=== PATIENT | female | born 1985 | race Caucasian/White ===

== ENCOUNTER 2019-10-06 19:30 | Emergency (ER) | payer OTHER ==
[2019-10-06 19:44] VITALS: BP 105/71; PULSE 74; TEMP 98.1; BMI 25.0
[2019-10-06 20:44] LABS: BASO % 0.3 % (0-2.0); EOS % 0.2 % (0-4.5); HEMATOCRIT 38.5 % (32.4-45.2); HEMOGLOBIN 12.9 GM/dl (10.7-15.3); LYMPH % 24.8 % (8-40); MCH 29.3 pg (25.7-33.7); MCHC 33.5 g/dl (32.0-36.0); MEAN CELL VOLUME 87.4 fl (80-96); MEAN PLT VOLUME 10.6 fl (7.5-11.1); MONO % 5.3 % (3.8-10.2); NEUT % 69.4 % (42.8-82.8); PLATELET COUNT 177 K/MM3 (134-434); RDW 12.1 % (11.6-15.6); WHITE BLOOD COUNT 9.2 K/mm3 (4.0-10.8)
[2019-10-06 20:50] LABS: ALBUMIN 3.5 g/dl (3.4-5.0); BILIRUBIN,TOTAL 0.4 mg/dl (0.2-1); CREATININE 0.4 mg/dl (0.55-1.3); POTASSIUM 3.5 mmol/L (3.5-5.1); TOT PROT 6.6 g/dl (6.4-8.2)
--- NOTE | 2019-10-06 21:53 | PDOC ---
Documentation entered by April Sabillon SCRIBE, acting as scribe for Keiry Lynch MD. Keiry Lynch MD: This documentation has been prepared by the Ridge ramey Xhesika, SCRIBE, under my direction and personally reviewed by me in its entirety. I confirm that the documentation accurately reflects all work, treatment, procedures, and medical decision making performed by me. History of Present Illness - General Chief Complaint: Pain, Acute Stated Complaint: I THINK IM PREG I WANT AN U/S, ABD CRAMPS Time Seen by Provider: 10/06/19 19:33 History Source: Patient, Family Exam Limitations: No Limitations - History of Present Illness Initial Comments: 10/06/19 20:41 HPI The patient is a 34 y/o female, , with no significant PMH of who presents to the ED with lower abdominal cramping and lower back pain for the past day. The patient states her LMP was 2 months ago, she took a test at home which was positive. Pt reports a mild subjective fever, nausea, sweats, and intermittent headaches. Pt reports for the past 3 months where her hands and feet get cold. Family at bedside states the patient came [place] the [place] ago, and has not seen an OBGYN yet. Pt denies vaginal bleeding/ discharge. [place] ago. Denies syncope, chest pain, SOB, palpitation, dizziness, weakness, V, D, bladder and bowel problems, focal weakness/paresthesias, leg swelling/pain, rash. no VB or discharge. No suspicious food intake. Allergies: None Past Medical History/PSH:None reported Social history: Lives with family. No tobacco, ETOH or drug use. Meds: as documented in EMR Family history: noncontributory ROS GENERAL/CONSTITUTIONAL: No fever or chills. No weakness. + sweats. HEAD, EYES, EARS, NOSE AND THROAT: +headache, dizziness. no sore throat or ear pain. CARDIOVASCULAR: No chest pain or palpitations, syncope or edema. RESPIRATORY: No SOB, cough GASTROINTESTINAL +nausea. No vomiting. No diarrhea or constipation. No bloody stools. GENITOURINARY: No hematuria, dysuria, frequency, urgency or other changes. MUSCULOSKELETAL: No joint or muscle swelling or pain. No decreased range of motion. No neck pain. + lower back pain. +abdominal cramping. SKIN: No rash or changes in skin color or lesions. No wounds. NEUROLOGIC: alert and oriented appropriately +headache. No dizziness, loss of consciousness, or change in strength/ sensation. No gait instability. HEMATOLOGIC/LYMPHATIC: No anemia, easy bruising/bleeding, or history of blood clots. No swollen lymph nodes ALLERGIC/IMMUNOLOGIC: No allergies PSYCH: no anxiety/depression All other systems reviewed and negative, or as documented in HPI. PHYSICAL EXAM General: Well appearing, awake and alert, NAD. HEENT: NCAT, PERRL, EOMI, clear conjunctiva, anicteric, moist mucous membranes , clear oropharynx, no oral lesions.. Neck: neck supple, FROM Resp: CTAB, normal and even respirations, no respiratory distress CVS: RRR, no murmurs, 2+ peripheral pulses throughout, no peripheral edema Abdomen: soft, NTND, no rebound or guarding. No CVAT. Back: nontender, normal inspection and ROM] MSK: no edema, MINA x4, ROM intact. No clubbing or cyanosis. normal bulk and tone. Extremities: no calf tenderness Neuro: alert, oriented appropriately; no focal neurologic deficits Skin: warm and well perfused, cap refill <2 sec, normal color 10/06/19 22:27 Past History - Past Medical History Allergies/Adverse Reactions: Allergies Allergy/AdvReac Type Severity Reaction Status Date / Time No Known Allergies Allergy Verified 10/06/19 19:31 Home Medications: Ambulatory Orders NK [No Known Home Medication] 10/06/19 COPD: No Other medical history: DENIES - Psycho Social/Smoking Cessation Hx Smoking History: Never smoked Hx Alcohol Use: No Drug/Substance Use Hx: No *Physical Exam - Vital Signs Last Vital Signs Temp Pulse Resp BP Pulse Ox 98.1 F 74 16 105/71 100 10/06/19 19:31 10/06/19 19:31 10/06/19 19:31 10/06/19 19:31 10/06/19 19:31 ED Treatment Course - LABORATORY CBC & Chemistry Diagram: 10/06/19 20:30 10/06/19 20:30 - ADDITIONAL ORDERS Additional order review: Laboratory Results 10/06/19 10/06/19 19:48 19:48 Urine Color Yellow Urine Appearance Clear Urine pH 5.5 Urine Protein Negative Urine Glucose (UA) Negative Urine Ketones Negative Urine Blood Negative Urine Nitrite Negative Urine Bilirubin Negative Urine Urobilinogen 0.2 Ur Leukocyte Esterase Negative Urine HCG, Qual Positive - RADIOLOGY Radiology Studies Ordered: Category Date Time Status <14WKS US [US] Stat Ultrasound 10/06/19 20:18 Taken Medical Decision Making - Medical Decision Making 10/06/19 21:48 Vital Signs Temp Pulse Resp BP Pulse Ox 98.1 F 74 16 105/71 100 10/06/19 19:31 10/06/19 19:31 10/06/19 19:31 10/06/19 19:31 10/06/19 19:31 VS reviewed wnl, HD appropriate. UA is negative for any infection, CBC is within normal limits. cmp wnl, cr preserved. + No bleeding, no vaginal bleeding no indication to check type and screen.. Beta- hCG appropriately elevated. abdomens soft and nontender here, no lower quad tenderness, no RLQ or RUQ tenderness pt has been otherwise comfortable and appears hydrated, lorraine PO intake. Ultrasound reveals single IUP at approximately 9 weeks. normal ovaries c/w vitamins establishment of care with OBGYN recommended. 10/06/19 22:28 Pt to be discharged in stable condition. Patient and family () made aware of clinical impression, treatment recommendations and disposition plan, return precautions discussed (including but not limited to new or persistent/ worsening symptoms, pain, fevers, or signs of infection, chest pain, respiratory distress, inability to tolerate oral intake, dehydration, syncope, or neurologic changes). Follow up with [facility] (referrals given) as recommended, follow up information provided, take medications as instructed for duration of time. continue with supportive care, avoid triggers and precipitants. All questions answered to patient's satisfaction and expressed understanding and comfort with this. At the time of discharge, the patient is alert, clinically improved, tolerating po and verbalizes understanding of instructions, satisfied with the care received and felt comfortable with the plan. Patient does not suffer from an acute life-threatening medical condition at this time and is safe for outpatient follow-up. 10/06/19 22:30 Discharge - Discharge Information Problems reviewed: Yes Clinical Impression/Diagnosis: Qualifiers: Weeks of gestation: unspecified Qualified Code(s): Z34.90 - Encounter for supervision of normal , unspecified, unspecified trimester Abdominal pain Qualifiers: Abdominal location: unspecified location Qualified Code(s): R10.9 - Unspecified abdominal pain Condition: Stable Disposition: HOME - Admission No - Follow up/Referral Referrals: [facility] [Provider Group] Anila Devlin MD [Staff Physician] - Dolores Arceo MD [Staff Physician] - Tere Holbrook MD [Staff Physician] - - Patient Discharge Instructions Patient Printed Discharge Instructions: Nausea of (Alternative Therapy), DI for Abdominal Pain -- Early Additional Instructions: 1) Please follow-up with your primary care doctor in the next 1-2 days. Please call tomorrow for for any urgent issues. you should follow up with medical equipment repair technician/aquatics group fitness instructor for further follow up of your . 2) You were given a copy of the tests performed today. Please bring the results with you and review them with your primary care doctor. Your laboratory / imaging results were normal, with live single intrauterine at approx 9 weeks. 3) If you have any worsening of symptoms or any other concerns please return to the ED immediately. Return if worsening symptoms including fevers, headache, vomiting, visual or hearing disturbances, abdominal pain, chest pain, shortness of breath, syncope, dehydration, inability to take things by mouth/vomiting, altered mental status, or worsening concerning symptoms. 4) Please continue taking your home medications as directed. you should take daily vitamins over the counter Stay well hydrated and rest adequately. Make an appointment. If you cannot follow-up with your primary care doctor please return to the ED --- - Post Discharge Activity
== END 2019-10-06 22:41 | disposition home or self-care (01) ==
LOC: FER 19:30
DX: Z34.90 Encounter for supervision of normal pregnancy, unspecified, unspecified trimester (principal); R10.9 Unspecified abdominal pain
CPT/HCPCS: 36415; 76801-TC; 80053; 81003; 84702; 84703; 85025; 87086; 99284-25

== ENCOUNTER 2020-05-15 13:00 | Inpatient (IN) | payer OTHER ==
--- OUTSIDE RECORDS SUMMARY | 2020-05-15 13:20 | XMS ---
:1985 Author Organization [facility] Care Team Providers Name Role Phone MD Chapo Garsia Unavailable Unavailable MD John Tijerina Unavailable Unavailable MD Sudheer Tan Unavailable Unavailable Mica Shankar Unavailable Unavailable Jillian Hinojosa MD Unavailable Unavailable Juan Francisco Hinojosa MD Unavailable Unavailable Juan Francisco Hinojosa MD Unavailable Unavailable Juan Francisco Hinojosa MD Unavailable Unavailable Juan Francisco Hinojosa MD Unavailable Unavailable Juan Francisco Hinojosa MD Unavailable Unavailable Enio Unavailable Unavailable Other Unavailable Unavailable Re-disclosure Warning The records that you are about to access may contain information from federally- assisted alcohol or drug abuse programs. If such information is present, then the following federally mandated warning applies: This information has been disclosed to you from records protected by federal confidentiality rules (42 CFR part 2). The federal rules prohibit you from making any further disclosure of this information unless further disclosure is expressly permitted by the written consent of the person to whom it pertains or as otherwise permitted by 42 CFR part 2. A general authorization for the release of medical or other information is NOT sufficient for this purpose. The Federal rules restrict any use of the information to criminally investigate or prosecute any alcohol or drug abuse patient.The records that you are about to access may contain highly sensitive health information, the redisclosure of which is protected by Article 27-F of the [facility] Public Health law. If you continue you may haveaccess to information: Regarding HIV / AIDS; Provided by facilities licensed or operated by the [facility] Office of Mental Health; or Provided by the [facility] Office for People With Developmental Disabilities. If such information is present, then the following [facility] mandated warning applies: This information has been disclosed to you from confidential records which are protected by state law. State law prohibits you from making any further disclosure of this information without the specific written consent of the person to whom it pertains, or as otherwise permitted by law. Any unauthorized further disclosure in violation of state law may result in a fine or fci sentence or both. A general authorization for the release of medical or other information is NOT sufficient authorization for further disclosure. Encounters Encounter Providers Location Date Indications Data Source(s ) Outpatient Attender: Mica ICU-MATTRI 05/10/2020 S Darin Shankar 02:44:00 PM Hospital EDT Outpatient Attender: Mica ICU-RADCLAsim 05/03/2020 [facility] Angelito Torretender: 02:55:23 PM Hospital Doctor Other EDT Outpatient Attender: Jennifer ICU-OBGYAsim 04/27/2020 [facility] Darin SteenAttender: 09:57:52 AM Hospi erlinda Doctor Other EDT - 05/03/2020 11:59:00 PM EDT Patient discharged. Outpatient Attender: Jillian ICU-JENNIFER 04/19/2020 04:08:05 RAGINI Hinojosa MD PM EDT - 04/20/2020 [facility] 11:59:00 PM EDT Patient discharged. Outpatient Attender: MD Cowan ICUDarinOBYUVAL 04/16/2020 03:41:43 RAGINI Jean: Doctor PM EDT [facility] Other Admission cancelled. Disregard status an d admitted date. Outpatient Attender: Jillian ICUCHULA 04/13/2020 01:49:05 RAGINI Hinojosa MD PM EDT - 04/15/2020 [facility] 11:59:00 PM EDT Patient discharged. Outpatient Attender: Jillian ICUCHULA 04/05/2020 03:42:32 RAGINI Hinojosa MD PM EDT - 04/06/2020 [facility] 11:59:00 PM EDT Patient discharged. Outpatient Attender: MD Lopez ICU-LABCLAsim 04/02/2020 03:12:40 RAGINI Salter: Doctor PM EDT - 04/16/2020 [facility] Other 11:59:00 PM EDT Patient discharged. Outpatient Attender: MD Willard ICU-RADIO 03/25/2020 S - Angelito ValenzuelaelliReferrer: MD Willard 03:10:00 PM EDT - [facility] 03/25/2020 [facility] 11:59:00 PM EDT Patient discharged. Outpatient Attender: MD Willard ICU-RADCLN 03/25/2020 S - Angelito TanReferrer: 03:10:00 PM EDT - [facility] 03/25/2020 [facility] 11:59:00 PM EDT Patient discharged. Outpatient Attender: MD Lopez ICU-LABCLN 03/25/2020 02:35:18 [facility] Darin Salter: Doctor PM EDT - 04/02/2020 [facility] Other 11:59:00 PM EDT Patient discharged. Outpatient Attender: MD Willard ICU-OBGYN 03/25/2020 01:06:00 S [facility] PM EDT Hospital Admission cancelled. Disregard status an d admitted date. Outpatient Attender: MD Willard ICU-LABCLN 03/11/2020 S - Angelito TanAttender: Doctor 03:09:14 PM EDT - [facility] 03/25/2020 [facility] 11:59:00 PM EDT Patient discharged. Outpatient Attender: Jillian ICU-ANTE PAR 03/08/2020 03:54:44 RAGINI Hinojosa MD PM EDT - 03/09/2020 [facility] 11:59:00 PM EDT Patient discharged. Outpatient Attender: Jillian ICU-OBGYN 02/26/2020 03:27:00 MHSalvador Hinojosa MDAttender: PM EDT - 03/11/2020 Hospital Doctor Other 11:59:00 PM EDT Patient discharged. Outpatient Attender: Jillian ICU-OBGYN 02/25/2020 02:34:11 RAGINI Hinojosa MDAttender: PM EDT - 02/26/2020 Hospital Doctor Other 11:59:00 PM EDT Patient discharged. Outpatient Attender: Jillian ICU-DIABETIC CTR 02/24/2020 02:15:00 RAGINI Hinojosa MD PM EDT - 02/24/2020 [facility] 11:59:00 PM EDT Patient discharged. Outpatient Attender: Jillian ICU-DIABETIC CTR 02/17/2020 01:52:00 RAGINI Hinojosa MD PM EDT - 02/17/2020 [facility] 11:59:00 PM EDT Patient discharged. Outpatient Attender: ICUDarinOBGYN 02/12/2020 09:40:49 AM [facility] - Angelito Luong Other EDT Hospital Admission cancelled. Disregard status an d admitted date. Outpatient Attender: Jillian ICU-RADCLN 02/10/2020 11:39:37 [facility] Darin Hinojosa MDAttender: AM EDT - 02/12/2020 Hospital Doctor Other 11:59:00 PM EDT Patient discharged. Outpatient Attender: Jillian ICU-LAB 02/09/2020 10:38:00 AM RAGINI Hinojosa MD EDT - 02/09/2020 [facility] 11:59:00 PM EDT Patient discharged. Outpatient Attender: MD Willard ICU-OBGYN 01/29/2020 [facility] Darin TanAttender: Doctor 02:12:36 PM EDT [facility] Hospital Admission cancelled. Disregard status an d admitted date. Outpatient Attender: Jillian ICU-LABCLN 01/01/2020 12:09:54 [facility] Darin Hinojosa MDAttender: PM EDT - 01/29/2020 Hospital Doctor Other 11:59:00 PM EDT Patient discharged. Outpatient Attender: Jillian ICU-LABCLN 12/29/2019 01:16:56 RAGINI Hinojosa MDAttender: PM EDT - 01/01/2020 Hospital Doctor Other 11:59:00 PM EDT Patient discharged. Outpatient Attender: Jennifer ICU-RADCLN 12/25/2019 [facility] Darin Duncanender: Doctor 01:11:38 PM EDT - Cherise Other 12/29/2019 [facility] 11:59:00 PM EDT Patient discharged. Immunizations Vaccine Date Status Description Data Source(s) Tdap 03/25/2020 completed Tdap On: 25-Mar-2020 [facility] jenningsiordeniz 12:00:00 AM EDT Lot #: [id number], Spinzo Medications Medication Brand Start Product Dose Route Administrative Pharmacy [facility] Indications Reaction Description Data Name Date Form Instructions Instructions Source(s) Docusate Colace [id number] complet Colace [facility] Sodium 100 100 mg 2019 {cap( ed Health MG Oral oral 02:13: s)} System Capsule capsul 53 PM [Colace] e EDT Colace 100 mg oral capsule Medication should be taken with plenty o f water. 1 0 [id number] active 1 oral capsule Ordered: 01-Jan-2020 [facility] oral capsule Quantity: 0 [facility] [employer] [facility] Refills: 0 Insurance Providers Payer name Policy type Policy ID Covered Covered alliance party's Policy P ammy / Coverage alliance party ID relationship to Pantoja Inf ormation type pantoja WALLACE [id number] HEALTH NON CAP [facility]idel[facility] Care Medicaid [id number] 1 [id number] Medicaid Medicaid [id number] 1 [id number] MEDICAID [id number] SP [id number] [facility] Medicaid [id number] 1 [id number] Plan 3&4 Problems, Conditions, and Diagnoses Code Display Name Description Problem Type Effective Data Sour ce(s) Dates O24.410 Diet controlled Diet controlled 99085-2 03/25/2020 [facility] gestational gestational 12:00:00 AM Health Syst em diabetes mellitus diabetes mellitus EDT (GDM) in third (GDM) in third trimester trimester R76.12 Positive Positive 54752-2 03/25/2020 [facility] QuantiFERON-TB 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 Healt h System Gold test Gold test EDT O24.419 Gestational Gestational Diagnosis 05/10/2020 [facility] - New diabetes mellitus diabetes mellitus 01:30:00 PM Cherise in , (GDM) EDT Hospital unspecified control Z34.93 Encounter for Encounter for Diagnosis 05/10/2020 [facility] - Ne w supervision of supervision of 01:30:00 PM Aide lle normal , normal EDT H ospital unspecified, third in third trimester trimester Z34.83 Encounter for Encounter for Diagnosis 05/03/2020 [facility] - Ne w supervision of supervision of 02:12:00 PM Aide lle other normal normal EDT Hospit al , third in multigravida in trimester third trimester O36.93X0 Maternal care for and Diagnosis 04/20/2020 [facility] - N ew problem, placental problem 08:59:00 AM Ro purnima unspecified, third affecting EDT Hospit al trimester, not management of applicable or mother in third unspecified trimester Z3A.36 36 weeks gestation 36 weeks gestation Diagnosis 0 [facility] - New of of 02:16:00 PM [facility] O09.33 Supervision of Encounter in third Diagnosis 04/15/2020 MH S - New with trimester for 11:18:00 AM Whitney dubon insufficient supervision of [facility] care, with third trimester history of insufficient care Z91.19 Patient's Non-compliant Diagnosis 04/15/2020 [facility] - New noncompliance with patient 11:18:00 AM Aide lle other medical [facility] treatment and regimen O99.213 Obesity Maternal morbid Diagnosis 04/15/2020 [facility] - New complicating obesity in third 11:18:00 AM Aide lle , third trimester, [facility] trimester antepartum O24.410 Gestational Diet controlled Diagnosis 04/15/2020 [facility] - Ne w diabetes mellitus gestational 11:18:00 AM Aide lle in , diet diabetes mellitus [facility] controlled (GDM) Z3A.32 32 weeks gestation 32 weeks gestation Diagnosis 0 [facility] - New of of 12:00:00 AM [facility] Z23 Encounter for Encounter for Diagnosis 03/25/2020 S - Ne w immunization administration of 01:06:32 PM Roch mike vaccine [facility] R76.12 Nonspecific Positive Diagnosis 03/25/2020 [facility] - New reaction to cell 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 Terence helle mediated immunity Gold test [facility] l measurement of gamma interferon antigen response without active tuberculosis Z33.1 state, Encounter for Diagnosis 03/11/2020 [facility] - New incidental incidental 02:16:00 PM Kihei [facility] Z34.92 Encounter for Encounter for Diagnosis 02/24/2020 [facility] - Ne w supervision of supervision of 12:00:00 AM Aide lle normal , normal , [facility] unspecified, unspecified, second trimester second trimester Z3A.27 27 weeks gestation 27 weeks gestation Diagnosis 0 [facility] - New of of 12:00:00 AM [facility] Z3A.21 21 weeks gestation 21 weeks gestation Diagnosis 05/22/202 0 [facility] - New of of 12:00:00 AM [facility] N91.1 Secondary Secondary Diagnosis 12/29/2019 S - New amenorrhea amenorrhea 11:40:00 AM [facility] Surgeries/Procedures Procedure Description Date Indications Data Source(s) XR Chest Single PA view 03/25/2020 Health system XR Chest Single PA view 03:16:00 PM EDT S ystem - 03/25/2020 03:16:00 PM EDT US Obstetric Biophysical 02/12/2020 [facility] Profile US Obstetric 10:42:00 AM EDT Syst em Biophysical Profile - 02/12/2020 10:42:00 AM EDT Venipuncture 02/09/2020 [facility] th 10:40:26 AM EDT System - 02/09/2020 12:00:23 PM EDT Chlamydia 01/01/2020 [facility] Trachomatis/Neisseria 04:39:30 PM EDT Sys tem Gonorrhea RNA,TMA - 01/01/2020 04:51:59 PM EDT Cystic Fibrosis Screen 01/01/2020 [facility] 12:41:57 PM EDT System - 01/01/2020 01:24:04 PM EDT SMA Carrier Screen 01/01/2020 [facility] 12:41:57 PM EDT System - 01/01/2020 01:20:29 PM EDT Maternal Serum Screen 4 01/01/2020 Health system 12:41:57 PM EDT System - 01/01/2020 01:25:26 PM EDT Quantiferon-TB Gold 01/01/2020 [facility] 12:41:57 PM EDT System - 01/01/2020 01:25:26 PM EDT US Obstetric Complete US 12/31/2019 [facility] Obstetric Complete 02:06:00 PM EDT System - 12/31/2019 02:06:00 PM EDT Results ID Date Data Source [id number] 05/12/2020 08:11:00 AM EDT [facility] Biophysical profileCLINICAL INFORMATION: Female, 34 years old. Evaluate for fetalwell being. LMP 08/02/2019 of lulú ds an estimated gestationalage of 40 weeks 4 days.TECHNIQUE: Transabdominalultrasono graphy of the gestation wasperformed.FINDINGS: Correlation is m stanislaw with a prior study [id number]/12/2020.Biophysical profile sco re is as follows: movement 2/2Fetal breathing2/2Fetal tone 2/2Amniotic fluid volume 2/2Total biophysical profile score is 8/8.A singlelive intrauterine gestation was noted. The lie iscephalic. The placenta is anterior. Its appearanceisp hysiologic. Amniotic fluid volume is within physiologiclimits, with an MADHU of approx imately 8.1 cm. Fetalmotion andfetal cardiac motion are identified.Evaluation of feta l anatomy is limited on thisexamination.The following measurements were perfor med. AnatomyBiparietaldiameter = 9.4 cm for estimated age 38 weeks, 3days.Head c ircumference = 34.3 cm for estimated age 39 weeks,4 days.Abdominal circumference = 3 8.0 cm for estimated age 42 weeks, 0days.Femur length = 7.5 cm forestimated age 38 weeks, 3 days.Estimated gestational age by ultrasound is 39 week s and 4days +/- 22days.Estimated date of delivery by ultrasound is 05/15/2020.Est imated weight is 4118 g +/- 609g or 9 pounds and 1ounce +/- 21 ounces.Estimate d weight percentile is 87 %. cardiacactivity is identified with a rat e of 130 beatsper minute.IMPRESSION:Biophysical profileis 8 out of 8.Single live intrauterine gestation. Cephalic lie. Anteriorplace nta. Amniotic fluid indexis 8.1 cm.Estimated gestational age by ultrasound is 3 9 weeks and 4days +/- 22days.Estimated date of delivery by ultrasound is 05/15/2020. Estimated weight is 4118 g +/- 609g or 9 pounds and 1ounce +/- 21 ounces.Estima marilynn weight percentile is 87 %. cardiacactivity is identified with a rat e of 130 beatsper minute.Appropriate interval fetalgrowth.Electronically Signed:Vikash William, at 23:54 EDTTel , Servicesupport [phone], [phone] Name Value Range Interpretation Code Description Data Tamra rce(s) Supporting Document(s ) ID Date Data Source [id number] 05/09/2020 01:52:28 AM EDT [facility] Name Value Range Interpretation Description Data Source(s ) Supporting Code Document(s ) Reagin Ab Non-react Normal (applies to RPR. [facility] [Presence] ulysses non-numeric Health System in Serum by results) RPR ID Date Data Source [id number] 05/09/2020 01:52:28 AM EDT [facility] Name Value Range Interpretation Description Data Sup porting Code Source(s) Document(s ) Deprecated Micro Normal (applies Aerobic [facility] Bacteria Result to non-numeric Culture, Urine Health identified in Final results) System Urine by Culture Aerobe Reading culture Note::< 10,000 CFU/ML ID Date Data Source [id number] 05/09/2020 01:52:28 AM EDT [facility] Name Value Range Interpretation Description Data Sup porting Code Source(s) Document(s ) Erythrocytes 3.71 Below low normal RBC Count [facility] [#/volume] in {10^6_uL Health Blood by } System Automated count Leukocytes 6.6 Normal (applies WBC Count [facility] [#/volume] in {10^3_uL to non-numeric Health Unspecified } results) System specimen by Automated count Hematocrit 33.7 % Below low normal Hematocrit [facility] [Volume Health Fraction] of System Blood Erythrocyte mean 90.8 fl Normal (applies MCV [facility] corpuscular to non-numeric Health volume [Entitic results) System volume] by Automated count Hemoglobin 11.3 Below low normal Hemoglobin [facility] [Mass/volume] in {gm/dL} Health Blood System Erythrocyte mean 30.5 pg Normal (applies MCH [facility] corpuscular to non-numeric Health hemoglobin results) System [Entitic mass] by Automated count Platelets 147 Normal (applies Platelet Count [facility] [#/volume] in {10^3_uL to non-numeric Health Plasma by } results) System Automated count Erythrocyte 13.8 % Normal (applies RDW-CV [facility] distribution to non-numeric Health width [Entitic results) System volume] by Automated count Erythrocyte mean 33.5 Normal (applies MCHC [facility] corpuscular {gm/dL} to non-numeric Health hemoglobin results) System concentration [Mass/volume] by Automated count Nucleated 0.0 Normal (applies NRBC % [facility] erythrocytes {/100_WB to non-numeric Health [#/volume] in C} results) System Body fluid Platelet mean 11.4 fl Normal (applies MPV [facility] volume [Entitic to non-numeric Health volume] in Blood results) System by Automated count Neutrophils 4.7 Normal (applies Neutrophil # [facility] [#/volume] in {10^3_uL to non-numeric Health Body fluid } results) System Lymphocyte 1.5 Normal (applies Lymphocyte # [facility] percent {10^3_uL to non-numeric Health differential } results) System count (procedure) Lymphocytes 22.5 % Normal (applies Lymphocyte % [facility] [#/volume] in to non-numeric Health Blood by results) System Automated count NRBC# 0.00 Normal (applies NRBC # [facility] {10^3_uL to non-numeric Health } results) System Neutrophils/100 71.2 % Normal (applies Neutrophil % Arthur mario leukocytes in to non-numeric Health Blood by results) System Automated count Basophils/100 0.2 % Normal (applies Basophil % [facility] leukocytes in to non-numeric Health Unspecified results) System specimen by Manual count Eosinophils/100 0.2 % Normal (applies Eosinophil % Arthur mario leukocytes in to non-numeric Health Unspecified results) System specimen Eosinophils 0.01 Normal (applies Eosinophil # [facility] [#/volume] in {10^3_uL to non-numeric Health Blood } results) System Monocytes/100 5.0 % Normal (applies Monocyte % [facility] leukocytes in to non-numeric Health Blood results) System Monocytes 0.3 Normal (applies Monocyte # [facility] [#/volume] in {10^3_uL to non-numeric Health Blood by Manual } results) System count ImmatureGranuloc 0.06 Normal (applies Immature [facility] ytes# {10^3_uL to non-numeric Granulocytes # Health } results) System ImmatureGranuloc 0.9 % Above high Immature [facility] ytes% normal Granulocytes % Health System Basophils 0.01 Normal (applies Basophil # [facility] [#/volume] in {10^3_uL to non-numeric Health Blood by } results) System Automated count ID Date Data Source [id number] 05/09/2020 01:52:28 AM EDT [facility] Name Value Range Interpretation Description Data Sup porting Code Source(s) Document(s ) Color Yellow Normal (applies Color [facility] to non-numeric Health results) System Specific 1.016 Normal (applies Urine Specific [facility] gravity of to non-numeric [facility] Urine results) System Appearance of HAZY Normal (applies Urine [facility] Urine to non-numeric Appearance Health results) System pH.. 7.0 Normal (applies pH.. [facility] {pH_units to non-numeric Health } results) System Glucose,UA NEG Normal (applies Glucose, UA [facility] to non-numeric Health results) System Protein NEG Normal (applies Protein [facility] [Mass/volume] to non-numeric Health in Serum or results) System Plasma Urobilinogen < 2.0 Normal (applies Urobilinogen [facility] [Mass/volume] to non-numeric UA Health in Urine results) System Reference Range: Negative or <=2.0 BilirubinUrine NEG Normal (applies Bilirubin Urine [facility] to non-numeric Health System results) Ketones NEG Normal (applies Ketones UA [facility] [Mass/volume] in to non-numeric Health S yste Urine results) Leukocyte esterase Trace Abnormal (applies Leukocyte Est erase [facility] [Units/volume] in to non-numeric Concentration [facility] System Urine results) Leukocytes 1 {/HPF} Normal (applies White Blood Cells Arthur mario [#/volume] in to non-numeric Health Syst em Unspecified specimen results) by Automated count Nitrate+Nitrite Negative Normal (applies Nitrite [facility] [Mass/volume] in to non-numeric Health S yste Unspecified specimen results) UrineBlood LG(3+) Abnormal (applies Urine Blood [facility] to non-numeric Health System results) verified with microscope Epithelial cells 11 {/HPF} Normal (applies to Epithelial Evita ls [facility] [Presence] in non-numeric Health System Unspecified specimen results) by Wet preparation Bacteria [Presence] FEW Normal (applies to Bacteria M [facility] in Unspecified non-numeric Health System specimen results) Mucus RARE Normal (applies to Mucus [facility] non-numeric Health System results) RedBloodCells 1 {/HPF} Normal (applies to Red Blood Cells M [facility] non-numeric Health System results) ID Date Data Source [id number] 05/09/2020 01:52:28 AM EDT [facility] Name Value Range Interpretation Description Data Sup porting Code Source(s) Document(s ) aPTT in Blood 26.8 Normal (applies Activated [facility] by Coagulation {Seconds to non-numeric Partial Health assay } results) Thromboplastin System Time ID Date Data Source [id number] 05/09/2020 01:52:28 AM EDT [facility] Name Value Range Interpretation Description Data Sup porting Code Source(s) Document(s ) Prothrombintim 10.70 Normal (applies Prothrombin [facility](PT) {seconds to non-numeric time (PT) Health System } results) INR in Blood 0.92 Normal (applies INR Result [facility] by Coagulation {Ratio} to non-numeric Health Sys tem assay results) Normal = 0.7-1.1Therapeutic = 2.0-3.0Mec hanical Heart = 3.0-4.5 ID Date Data Source [id number] 05/09/2020 01:52:28 AM EDT [facility] Name Value Range Interpretation Description Data Sup porting Code Source(s) Document(s ) Glucose 77 mg/dL Normal (applies to Glucose, Serum [facility] [Mass/volum non-numeric Health System e] in Serum results) or Plasma ID Date Data Source [id number] 05/09/2020 01:52:28 AM EDT [facility] Name Value Range Interpretation Description Data Sup porting Code Source(s) Document(s ) Quanti PositiveIn healthy Abnormal Quantiferon-T [facility] feron- persons who have a (applies to B Gold. Health TBGold low likelihood both non-numeric System . of M.tuberculosis results) infection and of progression to activetuberculosis if infected, a single positive QFT resultshould not be taken as reliable evidence of M. tuberculosisinfectio n. Repeat testing, with either the initial testor a different test, may be considered on a bgom-xq-elajvyrae. TB2-NI 0.95 {IU/mL} Normal (applies TB2-NIL [facility] L to non-numeric Health results) System The Nil tube value reflects the backgrou nd interferongamma immune response of the patient's blood sample.This value has be en subtracted from the patient'sdisplayed TB and Mitogen results.Lower than expected results with the Mitogen tube prevent false-negative Quantiferon readings byde tecting a patient with a potential immunesuppressive condition and/or subop timal pre-analyticalspecimen handling.The TB1 Antigen tube is coated with theM. tuberc ulosis-specific antigens designed to elicitresponses from TB antigen primed C D4+ helperT-lymphocytes.The TB2 Antigen tube is coated with theM. tuberculosis-specif ic antigens designed to elicitresponses from TB antigen primed CD4+ helper and CD8+cy totoxic T-lymphocytes.For additional information, please refer tohttp://educa tion.[employer]/faq/204(This link is being provided for informational/educ ational purposes only.)Test Performed at:[facility] [id number], [place], [place] [address]Martin Trevino M.D. TB1-NIL 0.68 {IU/mL} Normal (applies to TB1-NIL [facility] non-numeric results) System NIL 0.41 {IU/mL} Normal (applies to NIL [facility] non-numeric results) System Mitogen-NIL 6.92 {IU/mL} Normal (applies to Mitogen-NIL [facility] non-numeric results) System ID Date Data Source [id number] 05/09/2020 01:52:28 AM EDT [facility] Name Value Range Interpretation Description Data Sup porting Code Source(s) Document(s ) D Ab [Titer] in Positive Normal (applies Rh [facility] Serum or Plasma to non-numeric Health results) System Type A Normal (applies Type [facility] to non-numeric Health results) System AntibodyScreen Negative Normal (applies Antibody [facility] to non-numeric Screen Health results) System ID Date Data Source [id number] 05/09/2020 01:52:28 AM EDT [facility] Name Value Range Interpretation Description Data Sup porting Code Source(s) Document(s ) VaricellaResultValue 492.10 Normal (applies Varicella [facility] {index} to non-numeric Result Value Health results) System Index Interpretation<135.0 0 Negative - Antibody not ckoboizz559.00-164.99 Equivocal>or =165.00 Positive - Antibody detectedA positive result indicates that the patient has antibodyto VZV but does not differentiate between an active orpast i nfection. The clinical diagnosis must be interpretedin conjunction with the clini gelacio signs and symptoms ofthe patient. This assay reliably measures immunity dueto p revious infection but may not be sensitive enough todetect antibodies induced by va ccination. Thus, anegative result in a vaccinated individual does notnecessaril y indicate susceptibility to VZV infection.A more sensitive test for vaccination-wojciech linsey immunityis Varicella Zoster Virus Antibody Immunity Screen, ACIF.Test Perf ormed at:[facility], [place], [place] [address]NxyldpreMartin olmos M.D. ID Date Data Source [id number] 05/09/2020 01:52:28 AM EDT [facility] Shubham hanley System Name Value Range Interpretation Code Description Data Tamra rce(s) Supporting Document(s ) Rubella 3.17 Normal (applies to Rubella [facility] {index} non-numeric Health System results) Index Interpretation<0.90 Not consistent with immunity0.90-0.99 Equivocal>or=1.00 Consistent with immu nityThe presence of rubella IgG antibody suggestsimmunization or past or current infection with rubellavirus.Test Performed at:[facility] [place] [address]MdrzhhcuMartin Trevino M.D. ID Date Data Source [id number] 05/09/2020 01:52:28 AM EDT [facility] Shubham hanley System Name Value Range Interpretation Description Data Sup porting Code Source(s) Document(s ) Human NONREACTIVE Normal (applies HIV test, [facility] immunodeficien Normal Range: to non-numeric Routine Health cy virus Non results) (antigen and System antibody titer ReactiveNegativ antibody measurement e for HIV-1 testing) (procedure) antigen and HIV-1/HIV-2 antibodies. No laboratory evidence of HIV infection.Test was performed at [address] ID Date Data Source [id number] 05/09/2020 01:52:28 AM EDT [facility] Name Value Range Interpretation Description Data Sup porting Code Source(s) Document(s ) Ethinicity N/P Normal (applies Ethinicity [facility] to non-numeric Health results) System CFCarrierScre see Normal (applies CF Carrier [facility] en noteNEGATIVE, to non-numeric Screen Health NONE OF THE results) System MUTATIONS LISTEDBELOW WERE DETECTED Interpretatio see noteThis Normal (applies Interpretation [facility] n result does to non-numeric Health not rule out results) System the presence of amutation or a diagnosis of cystic fibrosis disease(CF). The risk for mutations that cause CF otherthan the ones tested depends greatly on familyhistory , clinical presentation, and ethnicity.Ghazal nce of Having a CF MutationEthni c Group Detection Before After NegativeRate Test ResultAshkena zi Anabaptist 94% 1 in 24 1 in 400Non-Hispan ic 88% 1 in 25 1 in 208CaucasianH ispanic-Ameri can 72% 1 in 46 1 in 164African-Am erican 65% 1 in 65 1 in 186Asian-Amer ican 49% 1 in 94 1 in 184Other insufficient data available Method. see noteThe Normal (applies Method. [facility] mutations are to non-numeric Health detected by results) System multiplex-meche ymerasechain reaction (PCR) amplification of specific CFgene regions, followed by nucleotide sequence analysison a massively parallel sequencing platform. Althoughrare, false positive or false negative results mayoccur. All results should be interpreted in the contextof clinical findings, relevant history, and otherlaborato ry data. Mutations/Meche SEE TEXT see Normal (applies Mutations/Polym [facility] ymorphisms [id number] to non-numeric orphisms Health (c.254G>A) results) System R334W (c.1000C>T)39 4delTT (c.262delTT) R347H (c.1040G>A)R1 17H (c.350G>A) R347P (c.1040G>C)62 1+1 G>T (c.489+1G>T) A455E (c.1364C>A)71 1+1 G>T (c.579+1G>T) 1507del (c.1519delATC )1078delT (c.948delT) V703qjp (c.1521delCTT )V520F (c.1558G>T) R553X (c.1657C>T)17 17-1 G>A (c.1585-1G>A) R560T (c.1679G>C)G5 42X (c.1624G>T) 1898+1 G>A (c.1766+1G>A) S549N (c.1646G>A) 2183AA>G (c.2051delAAi nsG)S549R (c.1645A>C or c.1647T>G) 2184delA (c.2052delA)G 551D (c.1652G>A) 2789+5 G>A (c.2657+5G>A) 3120+1 G>A (c.2988+1G>A) W6180P (c.3846G>A)R1 162X (c.3484C>T) B3222F (c.3909C>G)36 59delC (c.3528delC)3 849+10kb C>T (C.6053+66891 C>T)3876delA (c.3744delA)3 905insT (c.3773insT)T his assay detects thirty-two mutations, including thetwenty-thr ee core mutations recommended by the AmericanColle ge of Medical Genetics (ACMG) and the AmericanCongr ess of Obstetricians and Gynecologists (ACOG) forpopulation -based CF carrier screening. In additionto the ACMG/ACOG panel, this assay detects nineadditiona l mutations. While these mutations are rarein the [place] population, the scientific and medicallitera ture indicates that these mutations are notbenign polymorphisms . The status of the intron 9(formerly intron 8) polyT tract is reported onlywhen the R117H mutation is detected. Reviewer SEE TEXT see Normal (applies Reviewer Valeriy Gutierrez to non-numeric Health n results) System Orestes, Ph.D.,FACDi idalia, Molecular GeneticsHealt h care providers, please contact your local [facility] genetic counselor or call [employer]( [phone]) for assistance with interpretatio n ofthese results.The analytical performance characteristi cs of thisassay have been determined by [facility]. The modifications have not been cleared or approved by the FDA. Thisassay has been validated pursuant to the [place] ns and is used for clinical purposes.For additional information, please refer tohttp://educ ation.Call Loop /faq/cfscreen (This link is being provided for informational /educational purposes only.)This test was performed at:[facility] [address] [address]Dtwf Performed at:[facility], [address] [place] [address]Vsjycexadan Steele M.D., Ph.D. ID Date Data Source [id number] 05/09/2020 01:52:28 AM EDT [facility] Name Value Range Interpretation Description Data Sup porting Code Source(s) Document(s ) Interpretation-MAT SEE Normal (applies Interpretati [facility] 4 NOTEScreen to non-numeric on- MAT4 Health negative results) System for open NTD, Down syndrome and Trisomy 18. ONTDRisk 1:2200 Normal (applies ONTD Risk [facility] to non-numeric Health results) System DownRisk 1:543 Normal (applies Down Risk [facility] to non-numeric Health results) System DownRiskAge 1:430 Normal (applies Down Risk [facility] to non-numeric Age Health results) System Sezlxhd25Qcgd < 1:5000 Normal (applies Trisomy 18 [facility] to non-numeric Risk Health results) System AFPMoM,1Fetus 1.18 Normal (applies AFP MoM, 1 [facility] to non-numeric Fetus Health results) System AlphaFetoproteinMo DNR Normal (applies Alpha Arthur mario M to non-numeric Fetoprotein Health results) MoM System Mjvyx-6-Yzapjfxptn 76.70 ng/mL Normal (applies Alpha [facility] n [Moles/volume] to non-numeric Fetoprotein, Healt h in Serum or Plasma results) Serum System AFPMoM,2Fetus/Diab DNR Normal (applies AFP MoM, 2 [facility] etic to non-numeric Fetus/Diabet Health results) ic System AFPMoM,2Fetuses DNR Normal (applies AFP MoM, 2 [facility] to non-numeric Fetuses Health results) System AFPMoM,1Fetus/Diab DNR Normal (applies AFP MoM, 1 [facility] etic to non-numeric Fetus/Diabet Health results) ic System AFPMoM,3Fetuses DNR Normal (applies AFP MoM, 3 [facility] to non-numeric Fetuses Health results) System AFPMoM,3Fetus/Diab DNR Normal (applies AFP MoM, 3 [facility] etic to non-numeric Fetus/Diabet Health results) ic System hCG... 40.58 Normal (applies hCG... [facility] {IU/mL} to non-numeric Health results) System uE3MoM 0.94 Normal (applies uE3 MoM [facility] to non-numeric Health results) System GestationalAge 20.9 Normal (applies Gestational [facility] {Weeks} to non-numeric Age Health results) System hCGMom 2.15 Normal (applies hCG Mom [facility] to non-numeric Health results) System InhibinAMom 1.97 Normal (applies Inhibin A [facility] to non-numeric Mom Health results) System Performance of maternal serum AFP, hCG, estriol, and dimeric Inhibin A provides a useful screening test for detection of o pen neural tube defects and some chromosomal abnormalities. It should be noted that n ormal results never guarantee the of a normal baby and that 2 to 3 percent of n ewborns have some type of physical or mental defect, many of which are undetectable t hrough any known diagnostic technique. Comment-MAT4 SEE NOTEPerformance of Normal Comment- MAT4 [facility] maternal serum AFP, hCG, (applies to [facility] System estriol, and dimeric non-numeric Inhibin A provides a useful results) screening test for detection of open neural tube defects and some chromosomal abnormalities. It should be noted that normal results can never guarantee the of a normal baby and that 2 to 3 percent of newborns havesome type of physical or mental defect, many of which are undetectable through any known diagnostic technique. Race Other Normal Race [facility] (applies to Health System non-numeric results) Weight. 153 {lbs} Normal Weight. [facility] (applies to Health System non-numeric results) DatingMeth Last Menstrual Period Normal Dating Meth Arthur mario (applies to Health System non-numeric results) InhibinA 364 pg/mL Normal Inhibin A [facility] (applies to Health System non-numeric results) Piper 05/14/2020 Normal Piper [facility] (applies to Health System non-numeric results) Diabetic No Normal Diabetic [facility] (applies to Health System non-numeric results) RepeatForNtd No Normal Repeat For Ntd [facility] (applies to Health System non-numeric results) NtdFamHis No Normal Ntd Fam His [facility] (applies to Health System non-numeric results) Fetuses 1 Normal Fetuses [facility] (applies to Health System non-numeric results) uE3 2.13 ng/mL Normal uE3 [facility] (applies to Health System non-numeric results) Mat. 1986 This is a Normal Mat. [facility] screening test, not a (applies to Health System diagnostic test. Noreagent non-numeric system establishing the results) risk of chromosomeabnormalities during has been approved by theFDA. This risk assessment report is based in part ondemographic data provided by the ordering physician.It has been observed that patients who smoke cigarettesduring may have a slightly increased risk ofhaving a false positive SIMONA screen for Down syndrome ortrisomy 18. Please notify the laboratory promptly if anydata are incorrect. For assistance with recalculations,please call your local [facility] laboratory. Forassistance with interpretation of these results, pleasecontact your local [facility] genetic counseloror call [phone]).Th is is a screening test, not a diagnostic. No reagent system establishing the risk of chromosome abnormalities during has been approved by the FDA. This risk assessment report is based in part on demographic data provided by the ordering physician. Please notify the laboratory promptly if any data is incorrect. For assistance with recalcualtions, please call . For assistance with interpretation of these results, please contact our genetic counselor at [phone] or call [phone]. Requisition DNR Normal Requisition [facility] (applies to Health System non-numeric results) ID Date Data Source [id number] 05/09/2020 01:52:28 AM EDT [facility] Name Value Range Interpretation Description Data Sup porting Code Source(s) Document(s ) HepatitisBSurf Non Normal (applies Hepatitis B [facility] aceAntigen. ReactiveReferen to non-numeric [facility] ce Range: Non results) Antigen. System Reactive HepatitisBSurf DNRTest Normal (applies Hepatitis B [facility] aceAntigenNeut Performed to non-numeric [facility] at:[facility] results) Antigen Neut [facility], [place], [place] [address]RxvixklvCasey Trevino M.D. ID Date Data Source [id number] 05/09/2020 01:52:28 AM EDT [facility] Name Value Range Interpretation Code Description Data Tamra rce(s) Supporting Document(s ) Lead.. < 1 Normal (applies to Lead.. [facility] non-numeric results) Health Sy stem Analysis was performed by Inductively Co upled Plasma MassSpectrometry (ICPMS).Test Performed at:[facility], [place], [place] [address]CgvyrbosCasey Trevino M.D. ID Date Data Source [id number] 05/09/2020 01:52:28 AM EDT [facility] Name Value Range Interpretation Description Data Sup porting Code Source(s) Document(s ) SMN1 2 copies Normal (applies SMN1 [facility] to non-numeric Health results) System TechnicalResul see Normal (applies Technical [facility] ts noteNEGATIVE; to non-numeric Results Health AT LEAST TWO results) System COPIES OF THE SMN1 GENE DETECTED SMN2 1 copy Normal (applies SMN2 [facility] to non-numeric Health results) System Interpretation SEE TEXT see Normal (applies Interpretati [facility] . noteThis to non-numeric on. Health analysis results) System identified at least two (2) copies of theSMN1 gene. This result does not rule out carrierstatus or a diagnosis of spinal muscular atrophy (SMA)*This testing cannot differentiate between individualswho have all copies of the SMN1 gene on one chromosomeand NONE on the opposite chromosome as well as othermutations in the SMN1 gene. The risk for mutationsthat cause SMA other than the deletions tested dependsgreatly on family history and clinical presentation.__ ! ! !Risk to be a carrier-------- --!---------!-- !---- ------!-------- --Ethnicity !Detection! Prior !2SMN1 copy!3SMN1 copy! rate !carrier risk! result ! result--------- -!---------!--- ---------!----- -----!--------- - ! 95% ! 1 in 35 ! 1 in 632 ! 1 in 3500 ! ---------!----- -------!------- ---! A shkenazi ! 90% ! 1 in 41 ! 1 in 350 ! 1 in 4000Jewish ! ! ! ! !--- ------!-------- ----! ! Keisha n ! 93% ! 1 in 53 ! 1 in 628 ! 1 in 5000 ! ---------!----- -------!------- ---! A frican ! 71% ! 1 in 66 ! 1 in 121 ! 1 in 3000American ! ! ! ! !--- ------!-------- ----! ! Hisp anic ! 91% ! 1 in 117 ! 1 in 1061!1 in 130[address] !---------!---- --------!------ ----! Reviewer. SEE TEXT see Normal (applies Reviewer. Valeriy Qureshi to non-[facility] Health Premshine, results) System Ph.D.,[facility],Dir elvi, Molecular GeneticsSpinal muscular atrophy (SMA) is a family of disordersthat are characterized by progressive muscularweaknes s due to loss of anterior horn cells. Adeletion of exon 7 in the SMN1 gene causes 95% of SMA.New mutations account for approximately 2% of SMA.SMN2 genes are able to produce a protein identical tothat of the SMN1 gene, but at a reduced (10-20%)capacit y. As a result the number of copies of DHA8ixf been shown to influence the severity of thedisease. This assay detects the copy number of thetwo common genes (SMN1 and SMN2) recommended by theAmerican College of Medical Genetics (ACMG) forpopulation-b ased SMA carrier screening.Healt care providers, please contact your local[facility] genetic counselor or [employer] ([phone]) for assistance withinterpretat ion of these results.The copy number of the SMA genes (SMN1 and SMN2) isdetected by quantitative PCR. Although rare, falsepositive or false negative results may occur. Allresults should be interpreted in context of clinicalfinding s, relevant history, and other laboratory data.This test was developed and its analyticalperfo rmance characteristics have been determinedby [employer], [place], [place].It has not been cleared or approved by the FDA. Thisassay has been validated pursuant to the CLIAregulations and is used for clinical purposes.This test was performed at:[facility] [place], [place] [address]Iriveef Director: Abdirizak Steele M.D.Test Performed at:[facility] [place], [address] [place], [place] [address]Lmnvcyoadan Steele M.D., Ph.D. ID Date Data Source [id number] 05/09/2020 01:52:28 AM EDT [facility] Name Value Range Interpretation Code Description Data Tamra rce(s) Supporting Document(s ) RBC. 3.71 Below low normal RBC. [facility] {Million/u Health System L} Hematocri 33.4 % Below low normal Hematocrit. [facility] t. Health System hemoglobi 11.2 g/dL Below low normal hemoglobin. [facility] n. Health System MCV. 90.0 fl Normal (applies to MCV. [facility] non-numeric Health System results) MCH. 30.2 pg Normal (applies to MCH. [facility] non-numeric Health System results) RDW. 13.1 % Normal (applies to RDW. [facility] non-numeric Health System results) Test Performed at:[facility] [place] Radhika Trevino M.D. HemoglobinS 0.0 Normal Hemoglobin S [facility] {Percent} (applies to Health non-numeric System results) HemoglobinA 96.5 Normal Hemoglobin A [facility] {Percent} (applies to Health non-numeric System results) HemoglobinElectrophoresisInterpre SEE NOTENo Normal Hemog lobin [facility] tation Hemoglobin (applies to Electrophoresis Health variant non-numeric Interpretation System detected. results) HemoglobinC 0.0 Normal Hemoglobin C [facility] {Percent} (applies to Health non-numeric System results) Hem.Variant 0.0 Normal Hem. Variant [facility] {Percent} (applies to Health non-numeric System results) Test Performed at:[facility], [place], [place] Radhika Trevino M.D. Hemoglobin F < 1.0 Normal (applies to Hemoglobin, F [facility] Health [Mass/volume] in Blood non-numeric Syste m by Electrophoresis results) HemoglobinA2 2.5 Normal (applies to Hemoglobin A2 [facility] {Percent} non-numeric System results) ID Date Data Source [id number] 05/09/2020 01:52:28 AM EDT [facility] Name Value Range Interpretation Description Data Sup porting Code Source(s) Document(s ) C.Trac Not Normal (applies C. [facility] homati DetectedReference to non-numeric Trachomatis Healt h sAmp Range: Not Detected results) Amp System N.Gono Not Normal (applies N. Gonorrhea [facility] rrheab DetectedReference to non-numeric by [facility] yLCR Range: Not results) System DetectedThis test was performed using the APTIMA COMBO2(R) Assay(GEN-PROBE(R)) .For additional information, please refer tohttp://education. Physcient.co m/faq/ETB395(This link is being provided for informational/educa tionalpurposes only)Test Performed at:[facility], [place], [place] [address]Martin Trevino M.D. ID Date Data Source [id number] 05/09/2020 01:52:28 AM EDT [facility] System Name Value Range Interpretation Description Data Sup porting Code Source(s) Document(s ) ReportStatus FINAL Normal (applies Report Status [facility] to non-numeric Health results) System LMP.. 08/08/19 Normal (applies LMP.. [facility] to non-numeric Health results) System SOURCE.. CER Normal (applies SOURCE.. [facility] to non-numeric Health results) System PRE.PAP NA Normal (applies PRE.PAP [facility] to non-numeric Health results) System CLINICALINFO NA Normal (applies CLINICAL [facility] RMATION. to non-numeric INFORMATION. Health results) System GENERALCATEG DNR Normal (applies GENERAL [facility] ORIZATION to non-numeric CATEGORIZATION Health results) System STATEMENTOFA SEE Normal (applies STATEMENT OF [facility] DEQUACY NOTESatisfac to non-numeric ADEQUACY Health tory for results) System evaluation.E ndocervical/ transformati on zone componentpre sent.Age and/or menstrual status not provided PREV.BX NA Normal (applies PREV.BX [facility] to non-numeric Health results) System COMMENTCYTO DNR Normal (applies COMMENT CYTO [facility] to non-numeric Health results) System INTERPRETATI DNR Normal (applies INTERPRETATION/RE [facility] ON/RESULT2 to non-numeric SULT 2 Health results) System INTERPRETATI SEE Normal (applies INTERPRETATION/RE Mon [facility] ON/RESULT1 NOTENegative to non-numeric SULT 1 Health for results) System intraepithel ial lesion or malignancy. REVIEWCYTOTE DNR Normal (applies REVIEW [facility] CHNOLOGIST to non-numeric HUMAN RESOURCES MANAGER MANUFACTURING Health results) System CYTOTECHNOLO SEE NOTEJFG, Normal (applies HUMAN RESOURCES MANAGER MANUFACTURING M on[facility] GIST CT(ASCP)CT to non-numeric Health screening results) System location: [address] Note:The Pap is a screening test for cervical cancer. It is not adiagnostic test and is subject to false negative and false positiveresu lts. It is most reliable when a satisfactory sample, regularlyobt ained, is submitted with relevant clinical findings and history,and when the Pap result is evaluated along with historic and currentclini gelacio information. PATHOLOGIST. DNRTest Normal (applies PATHOLOGIST. [facility] Performed to non-numeric Health at:[facility] results) System [facility], [place], [place] [address]Everardo Trevino M.D. ID Date Data Source [id number] 05/09/2020 01:52:28 AM EDT [facility] 1 HOUR Name Value Range Interpretation Description Data Source(s ) Supporting Code Document(s ) 1HrGlucos 153 Normal (applies to 1 Hr Glucose [facility] e {gm/dL} non-numeric Health System results) Normal <130Borderline 130-140A bnormal >140 ID Date Data Source [id number] 05/09/2020 01:52:28 AM EDT [facility] Name Value Range Interpretation Description Data Sup porting Code Source(s) Document(s ) Blood glucose 80 mg/dL Normal (applies Glucose [facility] tolerance to non-numeric Tolerance, Health (procedure) results) Serum Fasting System Glucose 148 mg/dL Above high Glucose [facility] [Mass/volume] normal Tolerance, Health in Serum or Serum 30 System Plasma --30 Minutes minutes post XXX challenge Glucose 213 mg/dL Above high Glucose [facility] [Mass/volume] normal Tolerance, Health in Serum or Serum 1 Hour System Plasma --1 hour post XXX challenge GTTFastUrine Negative Normal (applies GTT Fast [facility] to non-numeric Urine Health results) System Glucose 222 mg/dL Above high Glucose [facility] [Mass/volume] normal Tolerance, Health in Serum or Serum 2 Hour System Plasma --2 hours post XXX challenge Glucose 122 mg/dL Above high Glucose [facility] [Mass/volume] normal Tolerance, Health in Serum or Serum 3 Hour System Plasma --3 hours post XXX challenge Glucose 2+ Normal (applies Glucose [facility] measurement, to non-numeric Tolerance, Health urine results) Urine 1 Hour System (procedure) Glucose Negative Normal (applies Glucose [facility] [Presence] in to non-numeric Tolerance, Health Urine by Test results) Urine 30 System strip --30 Minutes minutes post dose glucose RFW1NaWcwia 3+ Normal (applies GTT 3Hr Urine [facility] to non-numeric Health results) System Glucose 3+ Normal (applies Glucose [facility] [Mass/volume] to non-numeric Tolerance, Health in Urine --2 results) Urine 2 Hour System hours post dose glucose ID Date Data Source [id number] 05/09/2020 01:52:28 AM EDT [facility] Name Value Range Interpretation Description Data Sup porting Code Source(s) Document(s ) Reagin Ab Non-reactive Normal (applies RPR. [facility] [Presence Test to non-numeric Health ] in Methodology: results) System Serum by Nontreponemal RPR flocculation card test. ID Date Data Source [id number] 05/09/2020 01:52:28 AM EDT [facility] System Name Value Range Interpretation Description Data Sup porting Code Source(s) Document(s ) Leukocytes 8.0 Normal (applies WBC Count [facility] [#/volume] in {10^3_uL to non-numeric Health Unspecified } results) System specimen by Automated count Erythrocytes 3.77 Below low normal RBC Count [facility] [#/volume] in {10^6_uL Health Blood by } System Automated count Hematocrit 34.6 % Below low normal Hematocrit [facility] [Volume Health Fraction] of System Blood Hemoglobin 11.6 Below low normal Hemoglobin [facility] [Mass/volume] in {gm/dL} Health Blood System Erythrocyte mean 30.8 pg Normal (applies MCH [facility] corpuscular to non-numeric Health hemoglobin results) System [Entitic mass] by Automated count Erythrocyte mean 91.8 fl Normal (applies MCV [facility] corpuscular to non-numeric Health volume [Entitic results) System volume] by Automated count Erythrocyte mean 33.5 Normal (applies MCHC [facility] corpuscular {gm/dL} to non-numeric Health hemoglobin results) System concentration [Mass/volume] by Automated count Erythrocyte 14.7 % Above high RDW-CV [facility] distribution normal Health width [Entitic System volume] by Automated count Platelet mean 11.7 fl Normal (applies MPV [facility] volume [Entitic to non-numeric Health volume] in Blood results) System by Automated count Platelets 141 Normal (applies Platelet Count [facility] [#/volume] in {10^3_uL to non-numeric Health Plasma by } results) System Automated count Nucleated 0.0 Normal (applies NRBC % [facility] erythrocytes {/100_WB to non-numeric Health [#/volume] in C} results) System Body fluid NRBC# 0.00 Normal (applies NRBC # [facility] {10^3_uL to non-numeric Health } results) System Neutrophils/100 70.4 % Normal (applies Neutrophil % [facility] mario leukocytes in to non-numeric Health Blood by results) System Automated count Neutrophils 5.6 Normal (applies Neutrophil # [facility] [#/volume] in {10^3_uL to non-numeric Health Body fluid } results) System Lymphocytes 20.1 % Normal (applies Lymphocyte % [facility] [#/volume] in to non-numeric Health Blood by results) System Automated count Monocytes/100 7.3 % Normal (applies Monocyte % [facility] leukocytes in to non-numeric Health Blood results) System Lymphocyte 1.6 Normal (applies Lymphocyte # [facility] percent {10^3_uL to non-numeric Health differential } results) System count (procedure) Eosinophils 0.01 Normal (applies Eosinophil # [facility] [#/volume] in {10^3_uL to non-numeric Health Blood } results) System Eosinophils/100 0.1 % Normal (applies Eosinophil % [facility] mar[facility] leukocytes in to non-numeric Health Unspecified results) System specimen Monocytes 0.6 Normal (applies Monocyte # [facility] [#/volume] in {10^3_uL to non-numeric Health Blood by Manual } results) System count Basophils/100 0.3 % Normal (applies Basophil % [facility] leukocytes in to non-numeric Health Unspecified results) System specimen by Manual count Basophils 0.02 Normal (applies Basophil # [facility] [#/volume] in {10^3_uL to non-numeric Health Blood by } results) System Automated count ImmatureGranuloc 1.8 % Above high Immature [facility] ytes% normal Granulocytes % Health System ImmatureGranuloc 0.14 Above high Immature [facility] ytes# {10^3_uL normal Granulocytes # Health } System ID Date Data Source [id number] 05/09/2020 01:52:28 AM EDT [facility] Name Value Range Interpretation Code Description Data Tamra rce(s) Supporting Document(s ) HbA1C 4.2 % Below low normal HbA1C [facility] ID Date Data Source [id number] 05/09/2020 01:52:28 AM EDT [facility] Name Value Range Interpretation Description Data Sup porting Code Source(s) Document(s ) Potassium 3.7 Normal (applies Potassium, [facility] [Mass/volume] mmol/L to non-numeric Serum Health Syst em in Serum or results) Plasma Sodium 135 Normal (applies Sodium, Serum [facility] [Moles/volume mmol/L to non-numeric Health Syst em ] in Serum or results) Plasma Chloride 103 Normal (applies Chloride, [facility] [Moles/volume mmol/L to non-numeric Serum Health Syst em ] in Serum or results) Plasma Carbon 23.2 Normal (applies CO2, Serum [facility] dioxide, mmol/L to non-numeric Health System total results) [Moles/volume ] in Serum or Plasma Urea nitrogen 5 mg/dl Below low normal Blood Urea [facility] [Mass/volume] Nitrogen, Health System in Serum or Serum Plasma Glucose 74 mg/dL Normal (applies Glucose, Serum [facility] [Mass/volume] to non-numeric Health Syst em in Serum or results) Plasma Creatinine 0.45 Below low normal Creatinine, [facility] [Mass/volume] mg/dl Serum Health System in Serum or Plasma Calcium 8.5 Normal (applies Calcium, Total [facility] [Mass/volume] mg/dl to non-numeric Serum Health Syst em in Serum or results) Plasma Anion gap in 8.80 Normal (applies Anion Gap [facility] Serum or mmol/L to non-numeric Health System Plasma results) ID Date Data Source [id number] 05/09/2020 01:52:28 AM EDT [facility] Name Value Range Interpretation Description Data Sup porting Code Source(s) Document(s ) Human NONREACTIVE The Normal (applies HIV test, [facility] immunodeficien Draw Frame Tender HIV to non-numeric Routine Health cy virus 4th generation results) (antigen and System antibody titer HIV-1/2 antibody measurement Antigen/Antibod testing) (procedure) y combination is a chemiluminescen t Microparticle immunoassay(CMI A) for the simultaneous qualitative detection of HIV p24 antigen and HIV-1 and HIV-2 antibodies. The performance of this assay has not been clinically validated on patients less than 2 years old. ID Date Data Source [id number] 05/09/2020 01:52:28 AM EDT [facility] Name Value Range Interpretation Description Data Sup porting Code Source(s) Document(s ) Appearance of HAZY Normal (applies Urine [facility] Urine to non-numeric Appearance Health results) System Color Yellow Normal (applies Color [facility] to non-numeric Health results) System Specific gravity 1.012 Normal (applies Urine Specific [facility] of Urine to non-numeric [facility] results) System pH.. 6.0 Normal (applies pH.. [facility] {pH_unit to non-numeric Health s} results) System Glucose,UA NEG Normal (applies Glucose, UA [facility] to non-numeric Health results) System Protein NEG Normal (applies Protein [facility] [Mass/volume] in to non-numeric Health Serum or Plasma results) System BilirubinUrine NEG Normal (applies Bilirubin [facility] to non-numeric Urine Health results) System Urobilinogen < 2.0 Normal (applies Urobilinogen [facility] [Mass/volume] in to non-numeric UA Health Urine results) System Reference Range: Negative or <=2.0 Ketones NEG Normal (applies Ketones UA [facility] [Mass/volume] in to non-numeric Health S ystem Urine results) Nitrate+Nitrite Negative Normal (applies Nitrite [facility] [Mass/volume] in to non-numeric Health S ystem Unspecified results) specimen Leukocyte esterase Moderate Abnormal (applies Leukocyte Est erase [facility] [Units/volume] in to non-numeric Concentration Hea lth System Urine results) Leukocytes 23 {/HPF} Normal (applies White Blood Cells Arthur mario [#/volume] in to non-numeric Health Syst em Unspecified results) specimen by Automated count RedBloodCells < 1 /HPF Normal (applies Red Blood Cells [facility] to non-numeric Health System results) Epithelial cells 13 {/HPF} Normal (applies Epithelial Cells [facility] [Presence] in to non-numeric Health Syst em Unspecified results) specimen by Wet preparation Mucus RARE Normal (applies Mucus [facility] to non-numeric Health System results) UrineBlood NEG Normal (applies Urine Blood [facility] to non-numeric Health System results) Bacteria [Presence] MANY Normal (applies Bacteria [facility] in Unspecified to non-numeric Health Sys tem specimen results) ID Date Data Source [id number] 05/09/2020 01:52:28 AM EDT [facility] Name Value Range Interpretation Description Data Sup porting Code Source(s) Document(s ) Deprecated Micro Result Normal (applies Aerobic [facility] Bacteria Final Culture to non-numeric Culture, Health identified Reading results) Urine System in Urine by Note::"MULTIPL Aerobe E BACTERIAL culture MORPHOTYPES PRESENT, POSSIBLE CONTAMINATION, SUGGEST RECOLLECTION IF CLINICALLY INDICATED". ID Date Data Source [id number] 05/09/2020 01:52:28 AM EDT [facility] Name Value Range Interpretation Description Data Sup porting Code Source(s) Document(s ) C.Trach NOT DETECTED Normal (applies C. [facility] omatisA Reference Range: to non-numeric [facility] mp NOT DETECTED results) Amp System N.Gonor NOT DETECTED Normal (applies N. Gonorrhea [facility] rheabyL Reference Range: to non-numeric by [facility] Health CR NOT DETECTED results) System (Always SEE NOTES The Normal (applies (Always [facility] Message analytical to non-numeric Message) Health ) performance results) System characteristics of thisassay, when used to test SurePath(TM) specimens have beendetermined by [employer]. The modifications havenot been cleared or approved by the FDA. This assay hasbeen validated pursuant to the CLIA regulations and isused for clinical purposes.For additional information, please refer [email or web address] [email or web address] .[email or web address](Th is link is being provided for information/educat ional purposes only.)THIS TEST WAS PERFORMED AT:[employer] [id number] MARTIN,MDReported Date and Time - 04/19/2020 12:58 ID Date Data Source [id number] 05/09/2020 01:52:28 AM EDT Valeriy hanley System Name Value Range Interpretation Description Data Sup porting Code Source(s) Document(s ) Streptococcus Micro Result Normal (applies Culture [facility] agalactiae Final to non-numeric Screen, Strep Health [Presence] in Culture results) Group B System Cervix by Reading Organism Note::NEGATI specific VE FOR BETA culture HEMOLYTIC STREPTOCCI GROUP B ID Date Data Source [id number] 03/25/2020 03:16:00 PM EDT [facility] STUDY: X-RAY CHESTREASON FOR EXAM: Ana reese, 34 years old. 32 wks /R/OTB;TECHNIQUE: Frontal view COMPARISON: None. FINDINGS:Frontalview of the chest demonstrates no focal infiltrate oreffus ion. Heart size and mediastinum are within normallimits. Soft tissues and bony stru ctures are unremarkable.IMPRESSION: No focalinfiltrate.Electronically Signed:Alvino Bernard, at 15:56 EDTTel ,Service support [phone], [phone] Name Value Range Interpretation Code Description Data Tamra rce(s) Supporting Document(s ) ID Date Data Source [id number] 02/12/2020 10:42:00 AM EDT [facility] INDICATION: bpp/efw;EXAMINATION: Ultraso und US Biophysical Profile W/O NonstTECHNIQUE: Transabdominal pelvic ul trasound was performed.COMPARISON:None. FINDINGS:T here is a single intrauterinegestation.Biomet rics indicate an age of 27 weeks 5 days.Estimated weight 1115 g, (2 l bs. 7 oz.).47%There is a transverse presentation. Head to the maternal righ t.PIPER 05/08/2020.The placenta isanterior. heart rate 141 bpm.MADHU is 15.Biometrics 03/27.IMPRESSION:Singlelive intrauterine with gestational age 27 weeks5 days.Biometrics 03/27.ElectronicallySigned:Matias Raymond, at 11:47 EDTTel , Service support ,[phone] Name Value Range Interpretation Code Description Data Tamra rce(s) Supporting Document(s ) ID Date Data Source [id number] 12/31/2019 02:06:00 PM EDT [facility] STUDY: SECOND AND THIRD TRIMESTER OBST ETRICAL ULTRASOUNDREASON FOR EXAM: Female, 34 years old ;LMP: NoneTECHNI QUE: TransabdominalTECHNICAL QUALITY:Adequate.PRIOR ULTRASOUND: None. FINDINGS:There is asingle intrauterine fetus. The fetus is in afootling breech presen tation. There is demonstratedcardiacactivity with a heart rate of 144 bpm. There is a normalamniotic fluid volume. The largest amnioticfluid pocketmeasures 5.6 cm. Th e amniotic fluid index (MADHU) is 16.1 cm. The placenta is anterior There areGrade 1 p lacental changes. The cervix measures 3.1 in length. The bilateral adnexalregions ar enormal.BIOMETRY:BPD: 5.1 cm: 21 weeks, 3 daysHC: 19.2 cm: 21 weeks, 4 daysAC: 16.7cm: 21 weeks, 5 daysFL: 3.7 cm: 21 weeks, 5 daysCI: 77 FL/BPD: 72 F L/HC: 19.1 FL/AC: 22 HC/AC: 1.1Fetal age by current US: 21 weeks, 4 days. E DD by current US:05/08/2020. Estimatedfetal weight: 440 grams, +/- 65 gramsFETAL AN ATOMY:Gender: IndeterminateCranium: Normallateral ventricles. Normal choro id plexus. Normal cerebellum. Normal cisterna magna. Normal face,noseand l ips.Chest: Normal 4-chamber heart.Abdomen/Pelvis: Normal diaphragm. Normal stomach. Normalabdominal wall. Normal cord insertion. Normal 3 vesse lcord. Normal kidneys. Normalbladder.Spine: Normal cervical spine. Normal thoracic spine. Normallumbar spine. Normalsacrum.Extremities: Normal bilate ral upper extremities. Normalbilateral lowerextremities. IMPRESSION:* Single live intrauterine pregnancywith estimated ges tationalage 21 weeks 4 days.* PIPER 05/08/2012* heart rate 144 BPM* NormalAFI.* Anterior placenta.* Closed cervixElectronically Signed:Christian Maravilla, at15:58 EDTTel , Service support , [phone] Name Value Range Interpretation Code Description Data Tamra rce(s) Supporting Document(s ) Procedure Vital Signs ID Date Data Source [id number] Name Value Range Interpretation Code Description Data Source(s) Heart rate 81 0 - 999 Normal (applies to 81 [facility] non-numeric results) [facility] System Body surface area 1.8 m2 1.8 m2 [facility] Derived from Health Syste m formula Body mass index 29.5 kg/m2 29.5 kg/m2 [facility] ([facility] [Ratio] Health Syst em Body weight 78.01 kg 78.01 kg [facility] Body height 162.56 cm 162.56 cm [facility] Body temperature 98.1 [degF] 0 - 200 Normal (applies to 98.1 [degF ] [facility] non-numeric results) [facility] System Body temperature 36.7 Evita 0 - 99.9 Normal (applies to 36.7 Evita [facility] non-numeric results) [facility] th System Diastolic blood 70 mm[Hg] 0 - 999 Normal (applies to 70 mm[Hg] M [facility] pressure non-numeric results) [facility] th System Systolic blood 112 mm[Hg] 0 - 999 Normal (applies to 112 mm[Hg] [facility] pressure non-numeric results) [facility] System Body surface area 1.8 m2 1.8 m2 [facility] Derived from [employer] m formula Body mass index 29.3 kg/m2 29.3 kg/m2 [facility] (BMI) [Ratio] Health Syst em Body weight 77.56 kg 77.56 kg [facility] System Body height 162.56 cm 162.56 cm [facility] System Body temperature 98.1 [degF] 0 - 200 Normal (applies to 98.1 [degF ] [facility] non-numeric results) [facility] System Body temperature 36.7 Evita 0 - 99.9 Normal (applies to 36.7 Evita [facility] non-numeric results) [facility] System Diastolic blood 60 mm[Hg] 0 - 999 Below low normal 60 mm[Hg] [facility] pressure Health System Systolic blood 97 mm[Hg] 0 - 999 Below low normal 97 mm[Hg] [facility] Respiratory rate 24 0 - 999 Above high normal 24 M [facility] System Body surface area 1.7 m2 1.7 m2 [facility] Derived from [employer] formula Body mass index 26.2 kg/m2 26.2 kg/m2 [facility] (BMI) [Ratio] Health Syst em Body weight 69.39 kg 69.39 kg [facility] Health System Body height 162.56 cm 162.56 cm [facility] System Body temperature 97.7 [degF] 0 - 200 Normal (applies to 97.7 [degF ] [facility] non-numeric results) [facility] System Body temperature 36.5 Evita 0 - 99.9 Normal (applies to 36.5 Evita [facility] non-numeric results) [facility] System Diastolic blood 62 mm[Hg] 0 - 999 Below low normal 62 mm[Hg] [facility] pressure Health System Systolic blood 108 mm[Hg] 0 - 999 Below low normal 108 mm[Hg] [facility] System Heart rate 83 0 - 999 Normal (applies to 83 [facility] non-numeric results) [facility] System Body surface area 1.8 m2 1.8 m2 [facility] Derived from Health Syste m formula Body mass index 29 kg/m2 29 kg/m2 [facility] (BMI) [Ratio] Health Syst em Body weight 76.65 kg 76.65 kg [facility] System Body height 162.56 cm 162.56 cm [facility] System Body temperature 98 [degF] 0 - 200 Normal (applies to 98 [degF] [facility] non-numeric results) [facility] System Body temperature 36.6 Evita 0 - 99.9 Normal (applies to 36.6 Evita [facility] non-numeric results) [facility] System Diastolic blood 60 mm[Hg] 0 - 999 Below low normal 60 mm[Hg] [facility] System Systolic blood 100 mm[Hg] 0 - 999 Below low normal 100 mm[Hg] [facility] System Respiratory rate 18 0 - 999 Above high normal 18 M [facility] Heart rate 81 0 - 999 Normal (applies to 81 [facility] non-numeric results) [facility] System Body surface area 1.8 m2 1.8 m2 [facility] Derived from Health Syste m formula Body mass index 28.3 kg/m2 28.3 kg/m2 [facility] (BMI) [Ratio] Health Syst Body weight 74.84 kg 74.84 kg [facility] System Body height 162.56 cm 162.56 cm [facility] System Body temperature 98.4 [degF] 0 - 200 Normal (applies to 98.4 [degF ] [facility] non-numeric results) [facility] System Body temperature 36.8 Evita 0 - 99.9 Normal (applies to 36.8 Evita [facility] non-numeric results) [facility] System Diastolic blood 67 mm[Hg] 0 - 999 Normal (applies to 67 mm[Hg] [facility] non-numeric results) [facility] System Systolic blood 107 mm[Hg] 0 - 999 Below low normal 107 mm[Hg] [facility] System Heart rate 89 0 - 999 Normal (applies to 89 [facility] non-numeric results) [facility] System Body surface area 1.8 m2 1.8 m2 [facility] Derived from [employer] Syste m formula Body mass index 28.3 kg/m2 28.3 kg/m2 [facility] (BMI) [Ratio] Health Syst em Body weight 74.84 kg 74.84 kg [facility] System Body height 162.56 cm 162.56 cm [facility] System Body temperature 98.4 [degF] 0 - 200 Normal (applies to 98.4 [degF ] [facility] non-numeric results) [facility] System Body temperature 36.8 Evita 0 - 99.9 Normal (applies to 36.8 Evita [facility] non-numeric results) [facility] System Diastolic blood 58 mm[Hg] 0 - 999 Below low normal 58 mm[Hg] [facility] pressure Health System Systolic blood 107 mm[Hg] 0 - 999 Below low normal 107 mm[Hg] [facility] System Heart rate 93 0 - 999 Normal (applies to 93 [facility] non-numeric results) [facility] System Body surface area 1.8 m2 1.8 m2 [facility] Derived from [employer] Syste m formula Body mass index 30.3 kg/m2 30.3 kg/m2 [facility] (BMI) [Ratio] [facility] Body weight 80.28 kg 80.28 kg [facility] Body height 162.56 cm 162.56 cm [facility] Body temperature 97.4 [degF] 0 - 200 Normal (applies to 97.4 [degF ] [facility] non-numeric results) [facility] System Body temperature 36.3 Evita 0 - 99.9 Below low normal 36.3 Evita [facility] Diastolic blood 61 mm[Hg] 0 - 999 Below low normal 61 mm[Hg] [facility] pressure [facility] System Systolic blood 84 mm[Hg] 0 - 999 Below low normal 84 mm[Hg] [facility] System Respiratory rate 20 0 - 999 Above high normal 20 [facility] Heart rate 98 0 - 999 Normal (applies to 98 [facility] non-numeric results) [facility] System Body surface area 1.7 m2 1.7 m2 [facility] Derived from [employer] Syste m formula Body mass index 27.6 kg/m2 27.6 kg/m2 [facility] (BMI) [Ratio] Health Syst em Body weight 73.02 kg 73.02 kg [facility] Body height 162.56 cm 162.56 cm [facility] Body temperature 97 [degF] 0 - 200 Normal (applies to 97 [degF] [facility] non-numeric results) [facility] Body temperature 36.1 Evita 0 - 99.9 Below low normal 36.1 Evita Mo [facility] System Diastolic blood 59 mm[Hg] 0 - 999 Below low normal 59 mm[Hg] [facility] System Systolic blood 96 mm[Hg] 0 - 999 Below low normal 96 mm[Hg] [facility] System Respiratory rate 18 0 - 999 Above high normal 18 M [facility] Heart rate 93 0 - 999 Normal (applies to 93 [facility] non-numeric results) [facility] Body surface area 1.7 m2 1.7 m2 [facility] Derived from [employer] Syste m formula Body mass index 26.2 kg/m2 26.2 kg/m2 [facility] (BMI) [Ratio] Health Syst em Body weight 69.39 kg 69.39 kg [facility] Body height 162.56 cm 162.56 cm [facility] System Body temperature 97.2 [degF] 0 - 200 Normal (applies to 97.2 [degF ] [facility] non-numeric results) [facility] System Body temperature 36.2 Evita 0 - 99.9 Below low normal 36.2 Evita Mo [facility] System Diastolic blood 67 mm[Hg] 0 - 999 Normal (applies to 67 mm[Hg] [facility] pressure non-numeric results) [facility] Systolic blood 110 mm[Hg] 0 - 999 Below low normal 110 mm[Hg] [facility] System Respiratory rate 20 0 - 999 Above high normal 20 M [facility] System Heart rate 91 0 - 999 Normal (applies to 91 [facility] non-numeric results) [facility] System Body surface area 1.6 m2 1.6 m2 [facility] Derived from [employer] formula Body mass index 28.3 kg/m2 28.3 kg/m2 [facility] (BMI) [Ratio] Health Syst em Body weight 68.03 kg 68.03 kg [facility] System Body height 154.94 cm 154.94 cm [facility] System Body temperature 97.5 [degF] 0 - 200 Normal (applies to 97.5 [degF ] [facility] non-numeric results) [facility] System Body temperature 36.3 Evita 0 - 99.9 Below low normal 36.3 Evita [facility] Diastolic blood 68 mm[Hg] 0 - 999 Normal (applies to 68 mm[Hg] M [facility] pressure non-numeric results) [facility] System Systolic blood 109 mm[Hg] 0 - 999 Below low normal 109 mm[Hg] [facility] Heart rate 87 0 - 999 Normal (applies to 87 [facility] non-numeric results) [facility] Patient Treatment Plan of Care Planned Activity Planned Date Details Description Data Source (s) Docusate Sodium 100 MG 01/29/2020 02:13:53 [facility] Oral Capsule [Colace] PM EDT System 1 oral [facility] capsule System
[2020-05-15 14:05] LABS: BASO % 0.6 % (0-2.0); EOS % 0.1 % (0-4.5); HEMATOCRIT 39.3 % (32.4-45.2); HEMOGLOBIN 13.4 GM/dL (10.7-15.3); LYMPH % 19.6 % (8-40); MCH 31.6 pg (25.7-33.7); MCHC 34.1 g/dl (32.0-36.0); MEAN CELL VOLUME 92.5 fl (80-96); MONO % 7.5 % (3.8-10.2); NEUT % 72.2 % (42.8-82.8); PLATELET COUNT 102 K/MM3 (134-434); RBC 4.26 M/mm3 (3.60-5.2); RDW 14.6 % (11.6-15.6); WHITE BLOOD COUNT 7.5 K/mm3 (4.0-10.0)
[2020-05-15 14:12] LABS: INR 0.92 (0.83-1.09); PROTHROMBIN TIME (PATIENT) 10.9 SEC (9.7-13.0)
[2020-05-15 14:15] LABS: ACTIVATED PTT 25.9 SECONDS (25.2-36.5)
[2020-05-15] MEDS ORDERED: DINOPROSTONE 10 MG VAGINAL SUPPOSITORY VG ONE (14:26)
[2020-05-15 14:30] LABS: BLOOD UREA NITROGEN 10.4 mg/dL (7-18); CALCIUM 8.9 mg/dL (8.5-10.1); CREATININE 0.4 mg/dL (0.55-1.3); POTASSIUM 3.8 mmol/L (3.5-5.1)
--- NOTE | 2020-05-15 14:41 | HP ---
Past Medical History - Primary Care Physician PCP:: marcia gilbert - Admission Chief Complaint: Induction of labor History Source: Patient - Past Medical History ...: 3 ...Para: 2 ...EDC by Dates: 05/14/20 Endocrine: Yes: Diabetes Mellitus - Past Surgical History Hx Myomectomy: No Hx Transabdominal Cerclage: No - Smoking History Smoking history: Never smoked - Alcohol/Substance Use Hx Alcohol Use: No Home Medications - Allergies Allergies/Adverse Reactions: Allergies Allergy/AdvReac Type Severity Reaction Status Date / Time No Known Allergies Allergy Verified 05/15/20 14:15 - Home Medications Home Medications: Ambulatory Orders Pnv No.95/Ferrous Fum/Folic AC [ Formula] 1 each PO DAILY 05/15/20 Review of Systems - Review of Systems Constitutional: reports: No Symptoms Cardiovascular: reports: No Symptoms Respiratory: reports: No Symptoms Gastrointestinal: reports: No Symptoms Genitourinary: reports: No Symptoms Physical Exam - Maternity Constitutional: Yes: Well Nourished Cardiovascular: Yes: WNL Lungs: Clear to auscultation - Abdominal Exam/OB Fundal Height: 39 Number of Fetuses: Single Presentation: Vertex Contractions: No Regularity: Irregular Intensity: Unaware Monitor Mode: External Heart Rate (range): 130 Category: I Accelerations: Uniform Decelerations: None - Vaginal Exam/OB Dilatation (cm): ft Effacement (%): 0 Amniotic Membrane Status: Intact Presentation: Vertex/Position - Labs Lab Results: CBC, BMP 05/15/20 13:34 05/15/20 13:34 Hemorrhage Risk Assessment - Risk Factors Medium Risk Factors: Yes: None High Risk Factors: Yes: None Risk Score: 1 Risk Level: Medium Risk Assessment/Plan 34yo @ 40w1d,GDMA1,Quantiferon positive, CXR negative, platelets today-102 GBS negative Admit to labor and delivery labs Informed consent, patient wishes to use her for translation IV-LR Cervidil POCT anticipate vaginal delivery Regular diet now, NPO when regular contractions, Bedside sono- cephalic
[2020-05-15] MEDS ORDERED: LACTATED RINGERS SOLUTION 1,000 ML IV SCH (15:00)
[2020-05-15 15:14] VITALS: BMI 33.1
[2020-05-15] MEDS: LACTATED RINGERS SOLUTION 1,000 ML IV SCH (16:00)
--- NOTE | 2020-05-15 23:08 | PD.OB.PROG ---
Past Medical History - Primary Care Physician PCP:: Priti Oden Documenting Provider Type: Laborist - Admission Chief Complaint: Postdates; for induction. History of Present Illness: Multip, 40w 2d. GDM. Cervidil exchange requested by PCP. History Source: Caregiver Limitations to Obtaining History: No Limitations - Nursing Documentation Maternal Triage Index: Maternal Triage Index ( Priority 5, Requesting MFTI) Hemorrhage Risk Assessment: Risk Level Low Risk High Level Risk Factors for None Hemorrhage Medium Level Risk Factors for None of the above Hemorrhage Low Level Risk Factors for No previous uterine incis,Tomas Pregnaancy, Hemorrhage Four (4) or less previous,No known bleeding,No history of PPH Nursing Documentation Reviewed: Yes - Past Medical History CHIEF CLERK: Denies/None Cardio/Vascular: Denies/None Pulmonary: Denies/None Gastrointestinal: Denies/None Hepatobiliary: Denies/None Renal/: Denies/None ...: 3 ...Para: 2 ...Term: 2 ...: 0 ...Spon : 1 ...Induced : 0 ...Living Children: 2 ...Multiple Gestation: 0 ...LMP: 08/08/19 ... Weeks Gestation by Dates: 40.1 ...EDC by Dates: 05/14/20 ...EDC by Sono: 05/08/20 Heme/Onc: Denies/None Infectious Disease: Denies/None Psych: Denies/None Musculoskeletal: Denies/None Rheumatology: Denies/None ENT: Denies/None Endocrine: Denies/None Dermatology: Denies/None - Smoking History Smoking history: Never smoked Have you smoked in the past 12 months: No - Alcohol/Substance Use Hx Alcohol Use: No Review of Systems - Review of Systems Constitutional: reports: No Symptoms Eyes: reports: No Symptoms HENT: reports: No Symptoms Neck: reports: No Symptoms Cardiovascular: reports: No Symptoms Respiratory: reports: No Symptoms Gastrointestinal: reports: No Symptoms Genitourinary: reports: No Symptoms Breasts: reports: No Symptoms Reported Musculoskeletal: reports: No Symptoms Integumentary: reports: No Symptoms Neurological: reports: No Symptoms Endocrine: reports: No Symptoms Hematology/Lymphatic: reports: No Symptoms Psychiatric: reports: No Symptoms Physical Exam - Obstetrical Vital Signs: Vital Signs Temperature 98.1 F 09/26/20 22:27 Pulse Rate 85 05/15/20 22:27 Respiratory Rate 18 05/15/20 22:27 Blood Pressure 99/66 05/15/20 22:27 O2 Sat by Pulse Oximetry (%) 100 05/15/20 18:15 Constitutional: Yes: Well Nourished, No Distress, Calm Eyes: Yes: WNL, Conjunctiva Clear, EOM Intact HENT: Yes: WNL, Atraumatic, Normocephalic Neck: Yes: WNL, Supple, Trachea Midline Cardiovascular: Yes: WNL, Regular Rate and Rhythm Lungs: Clear to auscultation Breast(s): Yes: WNL - Abdominal Exam/OB Fundal Height: 39 Number of Fetuses: Single Presentation: Vertex Contractions: Yes Regularity: Irregular Intensity: Mild Monitor Mode: External Heart Rate (range): 130 Heart Rate Location: [facility] Category: I Accelerations: Uniform Decelerations: None - Vaginal Exam/OB Vaginal Exam Deferred: No Vaginal Bleeding: No Speculum Exam: No Dilatation (cm): 0 Effacement (%): 0 Amniotic Membrane Status: Intact Presentation: Vertex/Position Station: -2 - Physical Exam Musculoskeletal: Yes: WNL Extremities: Yes: WNL Integumentary: Yes: WNL ...Motor Strength: WNL Psychiatric: Yes: WNL - Labs Lab Results: CBC, BMP 05/15/20 13:34 05/15/20 13:34 Problem List - Problems (1) Post-dates Code(s): O48.0 - POST-TERM (2) Diet controlled gestational diabetes mellitus (GDM) Code(s): O24.410 - GESTATIONAL DIABETES MELLITUS IN , DIET CONTROLLED Assessment/Plan Cervidil exchanged. Good FH. Started tamar. No complaints.
[2020-05-16] MEDS ORDERED: BUTORPHANOL TARTRATE 1 MG/ML VIAL ONE ×2 (00:07)
[2020-05-16] MEDS ORDERED: BUTORPHANOL TARTRATE 1 MG/ML VIAL IVPB ONE (00:45)
[2020-05-16] MEDS ORDERED: OXYTOCIN 20 UNITS in 0.9% NS 20 UNIT/1,000 ML INFUS.BAG IV ONE ×2 (02:41→04:32)
[2020-05-16] MEDS ORDERED: LIDOCAINE HCL 1% PRESERVATIVE FREE - 30ML VIAL ONE (02:42)
[2020-05-16] MEDS ORDERED: OXYTOCIN 10 UNITS/ML VIAL ONE (03:13)
[2020-05-16] MEDS: OXYTOCIN 20 UNITS in 0.9% NS 20 UNIT/1,000 ML INFUS.BAG IV SCH (03:30)
--- NOTE | 2020-05-16 03:38 | PN ---
Delivery - Delivery Vaginal Delivery: No Problems, Spontaneous (Called to pt. who was fully and pushing. . Nuchal cord x 1. Mild SD (pt. was not following instructions). Luzobert's, post. shoulder delivered first.) Type of Anesthesia: None Episiotomy/Laceration: None EBL (cc): 300 (Straight cath.: 500 cc.) Delivery, Single - Stages of Labor Date of Delivery: 05/16/20 Time of Delivery: 03:08 Time Placenta Delivered: 03:12 Placenta: Yes: Spontaneous, Normal Configuration - Condition of Bee Worker/Tool And Die Supervisor Present: No Infant Gender: Male Position: Left, OA - 1 Minute Total Score: 9 5 Minutes Total Score: 9 - [place] Feeding Plan Initial Plan: Exclusive throughout hospitalization Remarks - Remarks Remarks: . Nuchal cord. Mild SD; Mari, post. shoulder first. Delayed cord clamping. PP massage, clots removal, bladder catheterized for 500 cc.
--- NOTE | 2020-05-16 03:46 | PN ---
Progress Note (short form) - Note Progress Note: Patient delivering on arrival. will follow up
[2020-05-16] MEDS ORDERED: METHYLERGONOVINE MALEATE 0.2 MG/1 ML AMP IM PRN (04:37)
[2020-05-16] MEDS ORDERED: BISACODYL 10 MG SUPP.RECT RC PRN (04:37)
[2020-05-16] MEDS ORDERED: IBUPROFEN 600 MG TABLET (FP) PO PRN (04:37)
[2020-05-16] MEDS ORDERED: ACETAMINOPHEN 1000 MG/100 ML VIAL (NON FORMULARY) IVPB PRN (04:38)
[2020-05-17 09:25] LABS: POC NITRAZINE POS
[2020-05-17 09:57] LABS: BASO % 0.3 % (0-2.0); EOS % 0.2 % (0-4.5); HEMATOCRIT 35.6 % (32.4-45.2); LYMPH % 20.7 % (8-40); MCH 31.7 pg (25.7-33.7); MCHC 33.9 g/dl (32.0-36.0); MEAN CELL VOLUME 93.4 fl (80-96); MONO % 3.7 % (3.8-10.2); NEUT % 75.1 % (42.8-82.8); PLATELET COUNT 83 K/MM3 (134-434); RBC 3.81 M/mm3 (3.60-5.2); RDW 14.9 % (11.6-15.6); WHITE BLOOD COUNT 7.5 K/mm3 (4.0-10.0)
[2020-05-17] MEDS ORDERED: DIPHTH,PERTUSS(ACELL),TET 0.5 ML DISP.SYRIN IM ONE (10:00)
[2020-05-17] MEDS: LACTATED RINGERS SOLUTION 1,000 ML IV SCH (19:25)
[2020-05-17] MEDS: OXYTOCIN 20 UNITS in 0.9% NS 20 UNIT/1,000 ML INFUS.BAG IV SCH (19:25)
[2020-05-17] MEDS ORDERED: SENNOSIDES/DOCUSATE COMBO (SENNA PLUS) TABLET (UD) PO PRN (22:00)
[2020-05-18 09:55] VITALS: BP 107/76; PULSE 81; TEMP 98
--- NOTE | 2020-05-18 11:16 | DS ---
Physical Exam-CUSTOMER RELATIONS REPRESENTATIVE Vital Signs: Vital Signs Temperature 98 F 05/18/20 09:00 Pulse Rate 81 05/18/20 09:00 Respiratory Rate 18 05/18/20 09:00 Blood Pressure 107/76 05/18/20 09:00 O2 Sat by Pulse Oximetry (%) 97 05/17/20 22:03 Labs: CBC, BMP 05/17/20 09:15 05/15/20 13:34 Delivery - Delivery Vaginal Delivery: No Problems, Spontaneous (Called to pt. who was fully and pushing. . Nuchal cord x 1. Mild SD (pt. was not following instructions). McRobert's, post. shoulder delivered first.) Type of Anesthesia: None Episiotomy/Laceration: None EBL (cc): 300 (Straight cath.: 500 cc.) Delivery, Single - Stages of Labor Date 1st Stage Initiatied: 05/16/20 Time 1st Stage Initiated: 00:45 Date 2nd Stage Initiated: 05/16/20 Time 2nd Stage Initiated: 02:50 Date of Delivery: 05/16/20 Time of Delivery: 03:08 Time Placenta Delivered: 03:12 Placenta: Yes: Spontaneous, Normal Configuration - Condition of Stagecraft Professor/Mat Machine Tender Present: No Gender: Male Weight: 3.941 kg Position: Left, OA Total Hours ROM (Hrs/Mins): 2 hrs 38 mins - 1 Minute Total Score: 9 5 Minutes Total Score: 9 - Feeding Plan Initial Plan: Exclusive throughout hospitalization Remarks - Remarks Remarks: pt. without complaints. vss - af fs 77 snd: soft, nt, nd, fundus firm vE: min lochia, intact a/p ppd 2 s/p pt doing well present to translate as per pt preference consent for circumcision plan for d/c to home today f/u in 2-4 weeks w ob and medical providers (due to hx gdm and thrombocytopenia) Discharge Summary Problems reviewed: Yes Reason For Visit: ADMIT INDUCTION Current Active Problems Post-dates (Acute) Procedures: Principal: Hospital Course: admitted for iol due to gdm and suspected gestational thrombocytopenia underwent uncomplicated PP course uneventful d/c to home with early PP f.u w extruding press adjuster and medical providers Condition: Good - Instructions Diet, Activity, Other Instructions: regular diet activity as tolerated but avoid strenuous activity, heavy lifting or intercourse. pericare Referrals: Jillian Hinojosa MD [Staff Physician] - 1 Month Disposition: HOME - Home Medications Comprehensive Discharge Medication List: Ambulatory Orders Pnv No.95/Ferrous Fum/Folic AC [ Formula Tablet] 1 each PO DAILY 05/15/20 Ibuprofen [Motrin -] 600 mg PO Q6H PRN #50 tablet 05/18/20
== END 2020-05-18 18:03 | disposition home or self-care (01) | DRG 560 ==
LOC: JLDR 13:00 → J3W 05-16 04:35
PROVIDERS: ADMIT Obstetrics & Gynecology; ATTEND Obstetrics & Gynecology
PROC: 3E0P7VZ Introduction of Hormone into Female Reproductive, Via Natural or Artificial Opening (ICD-10-PCS; 2020-05-15)
PROC: 10E0XZZ Delivery of Products of Conception, External Approach (ICD-10-PCS; principal; 2020-05-16)
DX: O48.0 Post-term pregnancy (principal); O24.420 Gestational diabetes mellitus in childbirth, diet controlled; O99.12 Other diseases of the blood and blood-forming organs and certain disorders involving the immune mechanism complicating childbirth; D69.6 Thrombocytopenia, unspecified; O69.81X0 Labor and delivery complicated by cord around neck, without compression, not applicable or unspecified; O66.0 Obstructed labor due to shoulder dystocia; R76.12 Nonspecific reaction to cell mediated immunity measurement of gamma interferon antigen response without active tuberculosis; Z3A.40 40 weeks gestation of pregnancy; Z37.0 Single live birth
CPT/HCPCS: 36415; 59409; 80048; 82962; 83986-QW; 85025; 85610; 85730; 86780; 86850; 86900; 86901; 90715